=== PATIENT | female | born 1960 | race Caucasian/White ===

== ENCOUNTER 2016-06-27 09:15 | Emergency (ER) | payer OTHER, MEDICARE ==
[~2016-06-27] VITALS: Ht 175.3 cm; Wt 59.0 kg
[~2016-06-27 09:15] MED LIST: ALDACTONE50 M1 PO; AUGMENTIN 500M500 MG PO; HYDROMORPHONE HC2 MG PO; LACTULOSE10 GM/153 PO; LEVOTHYROXINE25 MCG PO; LYRICA25 M1 PO; MULTIVITAMIN1 TA1 PO; PERCOCET 325 MG1 TA2 PO; PROPANOLOL PO; PROPRANOLOL HCL10 M1 PO; PROTONIX40 M3 PO; RESTORIL PO; RESTORIL15 MG PO; TRAZODO50 MG PO; TRAZODONE HCL50 M1 PO
--- NOTE | 2016-06-27 09:49 | ED DYSPNEA/ASTHMA COMPLAINT ---
History of Present Illness General Chief Complaint: Dyspnea (COPD, CHF, Other) Stated Complaint: SOB Source: patient, old records Exam Limitations: no limitations Vital Signs & Intake/Output Vital Signs & Intake/Output ED Intake and Output 06/28 0000 06/27 1200 Intake Total Output Total Balance Patient 130 lb Weight Allergies Coded Allergies: acetaminophen (Mild, RASH 06/27/16) codeine (UNKNOWN 06/27/16) hydrocodone (UNKNOWN 06/27/16) meperidine (UNKNOWN 06/27/16) Uncoded Allergies: ANTIHISTAMINE (HYPER 09/26/12) Reconcile Medications Albuterol Sulfate (Proair Hfa) 90 MCG HFA.AER.AD 2 PUF INH Q4-6 PRN PRN DYSPNEA Furosemide 20 MG TABLET 1 TAB PO DAILY WATER PILL (Reported) Lactulose 10 GRAM/15 ML SOLUTION 30 ML PO BID LIVER HEALTH (Reported) Levothyroxine Sodium 25 MCG TABLET 1 TAB PO DAILY AC THYROID (Reported) Methylprednisolone. (Medrol) 4 MG TAB.DS.PK 1 DP PO AD INFLAMMATION 6 on day 1 then reduce by one tablet daily until gone Oxycodone HCl 5 MG TABLET 1 TAB PO 4 TIMES/DAY PAIN (Reported) Pantoprazole Sodium (Protonix) 40 MG TABLET.DR 1 TAB PO DAILY ACID REFLUX ( Reported) Pregabalin (Lyrica) 25 MG CAPSULE 1 CAP PO BID NEUROPATHY (Reported) Propranolol HCl 10 MG TABLET 1 TAB PO BID HEART (Reported) Spironolactone (Aldactone) 50 MG TABLET 1 TAB PO DAILY WATER PILL (Reported) Trazodone HCl 50 MG TABLET 1 TAB PO DAILY ANXIETY (Reported) Zolpidem Tartrate 10 MG TABLET 1 TAB PO QPM SLEEP (Reported) Triage Note: PT STATES THAT SHE HAS HISTORY OF PNA AND PLEURACY AND THAT SINCE LAST NIGHT IT HURTS TO COUGH, BLOW HER NOSE AND TAKE DEEP BREATH. COUGH IS PRODUCTIVE OF THICK SPUTUM BUT NO COLOR NOTED PER PATIENT. Triage Nurses Notes Reviewed? yes HPI: Mrs. Samuels is a 56-year-old female with past medical history of hypertension, hypothyroidism, anxiety and multiple past surgeries in her abdomen as well as chronic back pain who presented to the emergency department on 06/27/2016 complaining of worsened chest discomfort and dyspnea. Patient states that her symptoms originally began on 06/26/2016 at approximately 4 PM. She felt that her symptoms may resolve after some rest, however this morning upon waking continued to feel dyspnic and dyspnea on exertion. Denies prolonged immobility or history of recent travel. She states that over the last few weeks she has lost a considerable amount of weight approximately 30 pounds. She states that she's had a decreased appetite. Last followed up with a primary care physician 2 months ago no significant events were noted. She did take her morning medication this morning. Patient does not report any sputum cough or sputum production. She does have an extensive history of smoking however quit in 2012. (MEAGHAN BARRY,PARESH) Past History Travel History Traveled to [place] past 21 day No Medical History Any Pertinent Medical History? see below for history Neurological: NONE EENT: NONE Cardiovascular: NONE Respiratory: pneumonia, PLEURACY Gastrointestinal: diverticulitis Hepatic: NONE Renal: NONE Musculoskeletal: NONE, osteoarthritis Psychiatric: anxiety Endocrine: hypothyroidism Blood Disorders: NONE Cancer(s): NONE PROGRAM ELIGIBILITY SPECIALIST/Reproductive: TUBIAL LIGATION History of MRSA: No History of VRE: No History of CDIFF: No Pneumonia Vaccine: 10/15/13 Influenza Vaccine: 11/05/13 Surgical History Surgical History: none Psychosocial History Who do you live with Significant Other Services at Home None What is your primary language Chilean Tobacco Use: Never used ETOH Use: denies use Illicit Drug Use: denies illicit drug use Family History Hx Contributory? Yes (MEAGHAN BARRY,PARESH) Review of Systems Review of Systems Constitutional: Reports: see HPI. Denies: chills, diaphoresis, fever, malaise, weakness. Respiratory: Reports: short of breath. Denies: cough, hemoptysis, orthopnea, sputum production, stridor, wheezing. Cardiovascular: Reports: chest pain. Denies: edema, orthopena, palpitations, peripheral edema. GI: Denies: abdominal pain, bloating, constipation, diarrhea, distention. Genitourinary: Denies: discharge, dysuria, frequency, hematuria, hesitation. Musculoskeletal: Denies: back pain, gout, joint pain, joint swelling. Skin: Denies: change in skin color, change in hair/nails, dryness. (MEAGHAN BARRY,PARESH) Physical Exam Physical Exam General Appearance: well developed/nourished, no apparent distress, alert, awake , anxious Head: atraumatic, normal appearance Respiratory: normal breath sounds, chest non-tender, no respiratory distress Cardiovascular: regular rate/rhythm Gastrointestinal: normal bowel sounds, soft, non-tender, distention Extremities: normal inspection, Edema Right > Left Neurologic/Psych: awake, alert, oriented x 3 Core Measures ACS in differential dx? No Severe Sepsis Present: No Septic Shock Present: No (PARESH HARDING MD) Progress Differential Diagnosis: costochondritis, COPD, pulmonary embolism, pneumonia Plan of Care: Current Medications Sig/Festus Start time Last Medication Dose Stop Time Status Admin Metronidazole 500 MG ONCE ONE 06/27 1415 CAN (Flagyl) 06/27 1514 N/A 1 UNIT (No Carrier) Initial ED EKG: normal axis (PARESH HARDING MD) Departure Departure Condition: Stable Referrals: Henrik SOLORZANO MD, MD, SUCHITH (PCP/Family) Departure Forms: Customer Survey General Discharge Information (PARESH HARDING MD) Departure Time of Disposition: 1420 Disposition: HOME OR SELF CARE Clinical Impression Primary Impression: COPD (chronic obstructive pulmonary disease) Additional Instructions: Take the Medrol Dosepak as directed and use the inhalers as needed. Please follow-up with your primary care doctor as well as the pulmonology specialists listed. There is no evidence of clot in her leg or on the CAT scan of her chest. Please return to the ER for any changing or worsening symptoms. Prescriptions: Current Visit Scripts Albuterol Sulfate (Proair Hfa) 2 PUF INH Q4-6 PRN PRN DYSPNEA #1 INHAL Methylprednisolone. (Medrol) 1 DP PO AD #1 DP 6 on day 1 then reduce by one tablet daily until gone Resident Co-Sign Statement Statement: ED Attending supervision documentation- [X] I saw and evaluated the patient. I have also reviewed all the pertinent lab results and diagnostic results. I agree with the findings and the plan of care as documented in the Resident's documentation. [X] I have reviewed the ED Record and agree with the Resident's documentation. [] Additions or exceptions (if any) to the Resident's note and plan are summarized below: [] (ANGELA GARCIA MD) Critical Care Note Critical Care Note Critical Care Time: non-applicable (PARESH HARDING MD) KELLY SUTHERLAND MD (PCP/Family) Departure Forms: Customer Survey General Discharge Information (PARESH HARDING MD) Departure Time of Disposition: 1420 Disposition: HOME OR SELF CARE Clinical Impression Primary Impression: COPD (chronic obstructive pulmonary disease) Additional Instructions: Take the Medrol Dosepak as directed and use the inhalers as needed. Please follow-up with your primary care doctor as well as the pulmonology specialists listed. There is no evidence of clot in her leg or on the CAT scan of her chest. Please return to the ER for any changing or worsening symptoms. Prescriptions: Current Visit Scripts Albuterol Sulfate (Proair Hfa) 2 PUF INH Q4-6 PRN PRN DYSPNEA #1 INHAL Methylprednisolone. (Medrol) 1 DP PO AD #1 DP 6 on day 1 then reduce by one tablet daily until gone (RADHA BARRY,ANGELA) Critical Care Note Critical Care Note Critical Care Time: non-applicable (MEAGHAN BARRY,PARESH)
[2016-06-27] MEDS ORDERED: OXYCODONE HCL5 M1 PO (10:35)
[2016-06-27] MEDS ORDERED: ZOLPIDEM TARTRA10 M1 PO (10:37)
[2016-06-27] MEDS ORDERED: FUROSEMIDE20 M1 PO (10:37)
--- NOTE | 2016-06-27 10:45 | RADIOLOGY REPORT ---
EXAMINATION: XR CHEST CLINICAL INFORMATION: Cough and shortness of breath. COMPARISON: 06/04/2015. TECHNIQUE: 2 views of the chest were obtained. FINDINGS: The cardiomediastinal silhouette is unremarkable. The lungs and pleural spaces appear clear without evidence of congestion, consolidation, or significant appearing effusion or atelectasis. The lungs remain hyperexpanded. There is no evidence of pneumothorax or pulmonary edema. Included osseous structures appear largely unremarkable. IMPRESSION: COPD changes, no evidence of an acute intrathoracic process.
[2016-06-27 11:17] LABS: ABSOLUTE BASOPHIL COUNT 0.1 /CUMM (0.0-0.2); ABSOLUTE EOSINOPHIL COUNT 0.1 /CUMM (0.0-0.7); ABSOLUTE GRANULOCYTE CT 7.8 /CUMM (1.4-6.5); ABSOLUTE LYMPH COUNT 1.7 /CUMM (1.2-3.4); ABSOLUTE MONOCYTE COUNT 0.7 /CUMM (0.10-0.60); BASOPHIL % 0.6 % (0.0-2.0); EOSINOPHIL % 1.1 % (0-5); GRANULOCYTE % 75.4 % (42.2-75.2); HEMATOCRIT 35.1 % (37-47); MEAN CORPUSCULAR HGB 34.1 PG (27.0-31.0); MEAN CORPUSCULAR HGB CONC 33.6 G/DL (33.0-37.0); MEAN CORPUSCULAR VOLUME 101.7 FL (81.0-99.0); MEAN PLATELET VOLUME 8.1 FL (7.4-10.4); PLATELET COUNT 246 /CUMM (130-400); RBC DISTRIBUTION WIDTH 13.1 % (11.5-14.5); RED BLOOD CELL CT 3.45 /CUMM (4.20-5.40); WHITE BLOOD CELL COUNT 10.4 /CUMM (4.8-10.8)
--- NOTE | 2016-06-27 12:29 | ULTRASOUND REPORT ---
EXAMINATION: US TRIPLEX OF LOWER EXTREMITIES, BILATERAL CLINICAL INFORMATION: Left lower extremity swelling COMPARISON: None TECHNIQUE: Color-flow triplex imaging with spectral analysis and compression Doppler were performed on the lower extremities. FINDINGS: Respiratory variation, normal compression and augmented flow are noted throughout the lower extremities. The visualized common femoral vein, superficial femoral vein, profunda femoral vein, popliteal vein and midcalf peroneal and posterior tibial venous segments show no evidence of deep venous thrombosis. There is no Kate's cyst. IMPRESSION: Normal triplex scan without evidence of deep venous thrombosis involving the lower extremities.
[2016-06-27 13:33] VITALS: BP 111/61
--- NOTE | 2016-06-27 14:19 | CT SCAN REPORT ---
EXAMINATION: CT ANGIOGRAM OF THE CHEST WITH AND WITHOUT CONTRAST (CT PULMONARY ANGIOGRAM FOR PE) CLINICAL INFORMATION: Dyspnea and dyspnea on exertion. COMPARISON: Chest x-ray performed earlier in the day. MR of the abdomen on 05/09/2016. TECHNIQUE: Prior to contrast administration, noncontrast localization images were obtained. Subsequently, multidetector volumetric imaging was performed from the thoracic inlet to below the diaphragms following the administration of 95 mL Optiray 320 intravenous contrast. No contrast reaction reported. Sagittal, coronal, and MIP oblique sagittal reformatted images were obtained on the CT workstation, uploaded to PACS, and reviewed. Total exam dose-length product 198 mGy-cm. FINDINGS: QUALITY OF STUDY/CONTRAST BOLUS: Excellent PULMONARY ARTERIES: No central or segmental pulmonary emboli. THORACIC AORTA: No aneurysm or dissection. LUNG: Small apical blebs are present, more numerous on the right than left. Lungs are clear. There is minimal dependent atelectasis in the lower lobes and platelike linear atelectasis of no consequence. PLEURA: No pleural effusion or pneumothorax. MEDIASTINUM: Normal heart size. No pericardial effusion. No hilar or mediastinal lymphadenopathy. No evidence of septal bowing or right heart strain. CHEST WALL/AXILLA: No axillary or internal mammary lymphadenopathy. OSSEOUS STRUCTURES: No acute or suspicious osseous abnormality. UPPER ABDOMEN: No reflux of contrast into the hepatic veins to suggest elevated right heart pressures. Although the exam does not include the full pancreatic bed, there is evidence of chronic calcific pancreatitis of the tail and enlargement in the body and head regions the pancreas. Some fluid tracking is evident anterior and superior to the pancreatic bed. An ovoid fluid collection extending from the head of the pancreas superiorly to the level of the diaphragm is identified. It measures 4.5 cm in length and represents a pancreatic pseudocyst. The margins of the body and tail of the pancreas are ill-defined. In addition, there appear to be perisplenic varices and therefore the integrity of the splenic vein is questioned. IMPRESSION: 1. No evidence of pulmonary embolism. 2. Chronic calcific pancreatitis. Pseudocyst formation. The full extent of involvement due to pancreatitis is not assessed on this exam. 3. Perisplenic varices. VTE: Negative.
[2016-06-27] MEDS ORDERED: PROAIR HFA8.5 GM INH (14:22)
[2016-06-27] MEDS ORDERED: MEDROL4 M2 PO (14:22)
== END 2016-06-27 14:43 ==
LOC: ERH 09:15
PROVIDERS: Student in an Organized Health Care Education/Training Program
DX: J44.9 Chronic obstructive pulmonary disease, unspecified (principal); R07.89 Other chest pain; R63.4 Abnormal weight loss; E03.9 Hypothyroidism, unspecified
CPT/HCPCS: 1263; 93005; 93010; 93970; 96374; J2930

== ENCOUNTER 2016-08-05 15:22 | Emergency (ER) | payer OTHER, MEDICARE ==
[~2016-08-05] VITALS: Ht 175.3 cm; Wt 59.0 kg
[~2016-08-05 15:22] MED LIST changes: +FUROSEMIDE20 M1 PO; +MEDROL4 M2 PO; +OXYCODONE HCL5 M1 PO; +PROAIR HFA8.5 GM INH; +ZOLPIDEM TARTRA10 M1 PO
--- NOTE | 2016-08-05 16:23 | ED GENERAL ADULT ---
History of Present Illness General Chief Complaint: Lower Extremity Problems Stated Complaint: BILATERAL LOWER EXT SWELLING Source: patient Exam Limitations: no limitations Allergies Coded Allergies: acetaminophen (Mild, RASH 08/05/16) codeine (UNKNOWN 08/05/16) meperidine (UNKNOWN 08/05/16) Uncoded Allergies: ANTIHISTAMINE (HYPER 09/26/12) Reconcile Medications Albuterol Sulfate (Proair Hfa) 90 MCG HFA.AER.AD 2 PUF INH Q4-6 PRN PRN DYSPNEA Furosemide 20 MG TABLET 1 TAB PO DAILY WATER PILL (Reported) Lactulose 10 GRAM/15 ML SOLUTION 30 ML PO BID LIVER HEALTH (Reported) Levothyroxine Sodium 25 MCG TABLET 1 TAB PO DAILY AC THYROID (Reported) Methylprednisolone. (Medrol) 4 MG TAB.DS.PK 1 DP PO AD INFLAMMATION 6 on day 1 then reduce by one tablet daily until gone Oxycodone HCl 5 MG TABLET 1 TAB PO 4 TIMES/DAY PAIN (Reported) Pantoprazole Sodium (Protonix) 40 MG TABLET.DR 1 TAB PO DAILY ACID REFLUX ( Reported) Pregabalin (Lyrica) 25 MG CAPSULE 1 CAP PO BID NEUROPATHY (Reported) Propranolol HCl 10 MG TABLET 1 TAB PO BID HEART (Reported) Spironolactone (Aldactone) 50 MG TABLET 1 TAB PO DAILY WATER PILL (Reported) Trazodone HCl 50 MG TABLET 1 TAB PO DAILY ANXIETY (Reported) Zolpidem Tartrate 10 MG TABLET 1 TAB PO QPM SLEEP (Reported) Triage Note: PT TO ED FOR BILATERAL LOWER EXT EDEMA AND PAIN X A COUPLE MONTHS. WORSE TODAY. DENIES SOB OR CP. CURRENTLY ON LASIX WITHOUT RELIEF. PT REFUSING TO LET THIS RN ASSESS LEGS IN TRIAGE. ALSO TAKING OXYCODE FOR CHRONIC PAIN, "BUT THAT ONLY WORKS FOR 60% OF THE PAIN." Triage Nurses Notes Reviewed? yes Onset: Gradual Duration: week(s): Timing: recent history Severity: severe Modifying Factors: Improves With: movement. HPI: 56-year-old female with history of liver failure, COPD presents to emergency department complaining of worsening swelling of both lower extremities. She states that she was seen and evaluated at Dr. Byers's office in July for her worsening swelling and was started on Lasix and spironolactone. She states that her swelling has only worsened and is now up to her upper legs as well as her abdomen. She has never had swelling this severe before. She says that it is painful and affects her walking. She also notes muscular weakness and states she can only walk up a few stairs before she feels too weak. She has tried elevating her legs however this is not reduced or swelling. She denies chest pain, dyspnea, cough, sore throat, fevers, chills, abdominal pain, urinary symptoms. (LINNETTE SCHULZ PA-C) Vital Signs & Intake/Output Vital Signs & Intake/Output Vital Signs Date Time Temp Pulse Resp B/P B/P Pulse O2 O2 Flow FiO2 Mean Ox Delivery Rate 08/05 2026 98.8 66 16 97/63 99 Room Air 08/05 1817 97.3 63 20 97/58 99 Room Air 08/05 1528 99.7 71 15 92/56 98 Room Air Room Air ED Intake and Output 08/06 0000 08/05 1200 Intake Total Output Total Balance Patient 130 lb Weight Weight Reported by Patient Measurement Method Past History Travel History Traveled to [place] past 21 day No Medical History Any Pertinent Medical History? see below for history Neurological: NONE EENT: NONE Cardiovascular: LOWER EXT SWELLING NEUROPATHY Respiratory: pneumonia, PLEURACY Gastrointestinal: diverticulitis, GERD, liver failure Hepatic: NONE Renal: NONE Musculoskeletal: osteoarthritis, CHRONIC BACK PAIN ON PAIN MANAGEMENT Psychiatric: anxiety Endocrine: hypothyroidism Blood Disorders: NONE Cancer(s): NONE MEDICAL CENTER REPRESENTATIVE/Reproductive: TUBIAL LIGATION History of MRSA: No History of VRE: No History of CDIFF: No Surgical History Surgical History: Bowel resection for perforated diverticula Psychosocial History Who do you live with Significant Other Services at Home None What is your primary language Serbian Tobacco Use: Quit >30 days ago ETOH Use: denies use Illicit Drug Use: denies illicit drug use Family History Hx Contributory? No (LINNETTE SCHULZ PA-C) Review of Systems Review of Systems Constitutional: Reports: no symptoms, see HPI. Comments Review of systems: See HPI, All other systems negative. Constitutional, no chills no fever, no malaise no weight loss HEENT: No visual changes no sore throat no congestion Cardiovascular: No chest pain , no palpitation , no orthopnea Skin: no rashes, no change in skin Respiratory: No dyspnea no cough no sputum no hemoptysis GI: No nausea no vomiting, no diarrhea, constipation +abdominal swelling : No dysuria No hematuria, no frequency, no discharge Muscle skeletal: +leg pain and swelling, no back pain, no neck pain, Neurologic: No numbness no confusion, no headache Psych: No stress no depression,. Heme/endocrine: No bruising Immunology: No lymphadenopathy (ZEUS ORTEZ,LINNETTE) Physical Exam Physical Exam General Appearance: well developed/nourished, no apparent distress, alert, awake Comments: Well-developed well-nourished person in no acute distress HEENT: Normal EENT exam; , EOMI, no scleral icterus, HEAD is atraumatic. moist mucous membranes. Neck: Supple, normal range of motion without pain or tenderness Back: Nontender, . Full range of motion Cardiovascular: Regular rate and rhythms no murmurs rubs or gallops, normal JVP Respiratory:. No respiratory distress. Patient speaking in full complete sentences. Breath sounds clear to auscultation bilaterally: NO W/R/R Abdomen: Soft, nontender nondistended, no appreciable organomegaly. Normal bowel sounds. No rebound/guarding, No appreciable enlargement of the abdominal aorta, No ascites. Extremity: 3+ pitting edema of bilateral lower extremities, full range of motion of extremities,dorsalis pedis 1+ bilaterally Neuro: Alert oriented x3, motor sensory normal,. There were no obvious focal neurologic abnormalities. Skin: mild erythema and swelling of lower extremities, skin is warm and dry. Psych: Mood and affect is normal, memory and judgment is normal. Core Measures ACS in differential dx? No CVA/TIA Diagnosis: No Severe Sepsis Present: No Septic Shock Present: No (ZEUS ORTEZ,LINNETTE) Progress Differential Diagnoses I considered the following diagnoses in my evaluation of the patient: [DVT, cellulitis, electrolyte abnormality, liver disease, anasarca] Diagnostic Imaging: Viewed by Me: Radiology Read. Discussed w/RAD: Radiology Read. CXR Impression: PATIENT: FERNANDEZ PEARSON PRESENT AGE: 56 PATIENT ACCOUNT NO: [id number] : 60 LOCATION: [facility] ORDERING PHYSICIAN: LINNETTE SCHULZ PA-C SERVICE DATE: 08/05/16 EXAM TYPE: RAD - XRY-CHEST XRAY, PA AND LATERAL EXAMINATION: XR CHEST CLINICAL INFORMATION: Leg swelling, shortness of breath COMPARISON: 06/27/2016 CTA chest TECHNIQUE: 2 views of the chest were obtained. FINDINGS: The cardiomediastinal silhouette is normal. The lungs are mildly hyperinflated which could be due to some degree of air trapping. No focal pulmonary infiltrate. No pleural effusions or pneumothorax. The visualized bony thorax is unremarkable. IMPRESSION: Hyperinflated lungs which could be due to some degree of air trapping. Clinical correlation is suggested. No focal pulmonary infiltrate. DICTATED BY: FRANCISCO FROST MD DATE/ TIME DICTATED:08/05/161744 TELEMARKETING REPRESENTATIVE:DEISI DATE/TIME TRANSCRIBED: 08/05/161744 CONFIDENTIAL, DO NOT COPY WITHOUT APPROPRIATE AUTHORIZATION. < Electronically signed in Other Vendor System> SIGNED BY: FRANCISCO FROST MD 08/05/16 1750 Initial ED EKG: none (ZEUS ORTEZ,LINNETTE) Plan of Care: Orders Procedure Date/time Status Regular Diet 08/06 B Active COMPREHENSIVE METABOLIC PANEL 08/06 1707 Complete CBC WITHOUT DIFFERENTIAL 08/06 1707 Complete Laboratory Tests 08/05/16 193: PT Cancelled, INR Cancelled, APTT Cancelled 08/05/16 1908: Anion Gap 3 L, Estimated GFR > 60, BUN/Creatinine Ratio 12.0, Glucose 110 H, Calcium 8.2 L, Total Bilirubin 0.5, AST 31, ALT 34, Alkaline Phosphatase 125, Total Protein 5.0 L, Albumin 2.0 L, Globulin 3.0, Albumin/Globulin Ratio 0.7 L, CBC w Diff NO MAN DIFF REQ, RBC 3.32 L, MCV 101.8 H, MCH 34.2 H, RDW 14.3, MPV 9.2, Gran % 50.8, Lymphocytes % 39.1, Monocytes % 6.5, Eosinophils % 2.8, Basophils % 0.8, Absolute Granulocytes 3.5, Absolute Lymphocytes 2.7, Absolute Monocytes 0.4, Absolute Eosinophils 0.2, Absolute Basophils 0.1, PUBS MCHC 33.5 The patient was discussed with Dr. Sanderson. 40mg IV lasix initiated for her edema. Patient is complaining of significant pain in her lower extremities. She takes oxycodone 5 mg at home which she says really 60% of her pain. She was given a dose of her home pain medication here in the ED. 1940 - Patient is requesting food tray. Upon re-evaluation her edema is unchaged 3+ bilaterally with pain to palpation. Blood work reveals low albumin, likely due to her chronic liver cirrhosis which is also likely causing her leg edema. The patient is in no acute distress and her vital signs have been within normal for the duration of her visit. She is nontoxic appearing. Her chest x-ray was within normal limits, the results of her imaging and blood work were discussed with her. She was educated to follow-up with her primary care doctor for possible dose adjustment of her Lasix and spironolactone. The diagnosis of DVT was considered however her perc score is 0, ultrasound was not performed given perc 0 and chronic leg edema rather than acute swelling. Edema appears chronic in nature and is secondary to her cirrhosis, edema will be managed out patient, the patient will follow up with Dr. Byers. The patient was given information for potassium rich foods to supplement with her diet. The patient was discussed with Dr. Ingram. She is in agreement with the plan of care. The patient is able to ambulate without assistance leaving the ED. (LINNETTE SCHULZ PA-C) Departure Departure Disposition: HOME OR SELF CARE Condition: Stable Clinical Impression Primary Impression: Pedal edema Secondary Impressions: Cirrhosis of liver, Hypoalbuminemia, Hypokalemia, Leg pain, bilateral Referrals: KELLY BYERS MD (PCP/Family) Additional Instructions: Follow-up with your primary care doctor, Dr. Byers, call office to make an appointment for this week as you may need dose adjustment of your medication. As Dr. Byers instructed take 1 and a half tablets of Lasix for the next few days with your increased leg swelling. Increase your dietary consumption of potassium, you were given a handout with food suggestions. Return with worsening symptoms or concerns. Departure Forms: Customer Survey General Discharge Information (LINNETTE SCHULZ PA-C) PA/BAG PATCHER Co-Sign Statement Statement: ED Attending supervision documentation- [] I saw and evaluated the patient. I have also reviewed all the pertinent lab results and diagnostic results. I agree with the findings and the plan of care as documented in the PA's/BAG PATCHER's documentation. [X] I have reviewed the ED Record and agree with the PA's/BAG PATCHER's documentation. [] Additions or exceptions (if any) to the PAs/BAG PATCHER's note and plan are summarized below: [] (RADHA BARRY,JONAH Cruz) PA/BAG PATCHER Co-Sign Statement Statement: ED Attending supervision documentation- [] I saw and evaluated the patient. I have also reviewed all the pertinent lab results and diagnostic results. I agree with the findings and the plan of care as documented in the PA's/BAG PATCHER's documentation. [] I have reviewed the ED Record and agree with the PA's/BAG PATCHER's documentation. [] Additions or exceptions (if any) to the PAs/BAG PATCHER's note and plan are summarized below: [] (NELLA BARRY,CÉSAR Liao) Critical Care Note Critical Care Note Critical Care Time: non-applicable (ZEUS ORTEZ,LINNETTE)
--- NOTE | 2016-08-05 17:50 | RADIOLOGY REPORT ---
EXAMINATION: XR CHEST CLINICAL INFORMATION: Leg swelling, shortness of breath COMPARISON: 06/27/2016 CTA chest TECHNIQUE: 2 views of the chest were obtained. FINDINGS: The cardiomediastinal silhouette is normal. The lungs are mildly hyperinflated which could be due to some degree of air trapping. No focal pulmonary infiltrate. No pleural effusions or pneumothorax. The visualized bony thorax is unremarkable. IMPRESSION: Hyperinflated lungs which could be due to some degree of air trapping. Clinical correlation is suggested. No focal pulmonary infiltrate.
[2016-08-05 19:17] LABS: ABSOLUTE BASOPHIL COUNT 0.1 /CUMM (0.0-0.2); ABSOLUTE EOSINOPHIL COUNT 0.2 /CUMM (0.0-0.7); ABSOLUTE GRANULOCYTE CT 3.5 /CUMM (1.4-6.5); ABSOLUTE LYMPH COUNT 2.7 /CUMM (1.2-3.4); ABSOLUTE MONOCYTE COUNT 0.4 /CUMM (0.10-0.60); BASOPHIL % 0.8 % (0.0-2.0); EOSINOPHIL % 2.8 % (0-5); GRANULOCYTE % 50.8 % (42.2-75.2); HEMATOCRIT 33.8 % (37-47); MEAN CORPUSCULAR HGB 34.2 PG (27.0-31.0); MEAN CORPUSCULAR HGB CONC 33.5 G/DL (33.0-37.0); MEAN CORPUSCULAR VOLUME 101.8 FL (81.0-99.0); MEAN PLATELET VOLUME 9.2 FL (7.4-10.4); PLATELET COUNT 202 /CUMM (130-400); RBC DISTRIBUTION WIDTH 14.3 % (11.5-14.5); RED BLOOD CELL CT 3.32 /CUMM (4.20-5.40); WHITE BLOOD CELL COUNT 6.9 /CUMM (4.8-10.8)
[2016-08-05 20:27] VITALS: BP 97/63
== END 2016-08-05 20:34 ==
LOC: ERH 15:22
PROVIDERS: Physician Assistant
DX: R60.9 Edema, unspecified (principal); K74.60 Unspecified cirrhosis of liver; E88.09 Other disorders of plasma-protein metabolism, not elsewhere classified; E87.6 Hypokalemia
CPT/HCPCS: J1940